=== PATIENT | female | born 1990 | race Caucasian/White ===

== ENCOUNTER → 2018-06-29 08:20 | Outpatient (CLI) | payer OTHER, SELFPAY ==
--- NOTE | 2018-06-29 08:25 | US_ITS ---
STUDY: ULTRASOUND OF THE FEMALE PELVIS - COMPLETE REASON FOR EXAM: Female, 28 years old. Pelvic pain. LMP: June 17, 2018. TECHNIQUE: Transabdominal TECHNICAL QUALITY: Adequate. COMPARISON: None. FINDINGS: The uterus is anteverted and is in a midline position. The uterus measures 7.6 cm x 3.2 cm x 2.4 cm. Normal uterine cervix. The endometrium measures 2.2 mm in thickness, and is hyperechoic. There is no demonstrated endometrial mass. There is no demonstrated myometrial mass. I.U.D. - The patient does not have an I.U.D. The right ovary is visualized. The right ovary measures 3.2 cm x 3 cm x 1.8 cm. There is no right ovarian cyst or ovarian mass. There is no visualized right adnexal mass or complex lesion. There is normal arterial and normal venous vascularity. The left ovary is visualized. The left ovary measures 2.0 cm x 1.8 cm x 1.8 cm. There is no left ovarian cyst or ovarian mass. There is no visualized left adnexal mass or complex lesion. There is normal arterial and normal venous vascularity. There is no fluid in the cul-de-sac. The pre void volume of the bladder was 577 ml. Polycystic ovary disease: No. US/Pelvic (Non ) IMPRESSION: Normal female pelvis. Electronically Signed: Vikram Toussaint MD at 14:04 EST Tel [phone], Service support ,
--- NOTE | 2018-06-29 08:26 | US_ITS ---
STUDY: ULTRASOUND OF THE FEMALE PELVIS - COMPLETE REASON FOR EXAM: Female, 28 years old. Pelvic pain. LMP: June 17, 2018. TECHNIQUE: Transabdominal TECHNICAL QUALITY: Adequate. COMPARISON: None. FINDINGS: The uterus is anteverted and is in a midline position. The uterus measures 7.6 cm x 3.2 cm x 2.4 cm. Normal uterine cervix. The endometrium measures 2.2 mm in thickness, and is hyperechoic. There is no demonstrated endometrial mass. There is no demonstrated myometrial mass. I.U.D. - The patient does not have an I.U.D. The right ovary is visualized. The right ovary measures 3.2 cm x 3 cm x 1.8 cm. There is no right ovarian cyst or ovarian mass. There is no visualized right adnexal mass or complex lesion. There is normal arterial and normal venous vascularity. The left ovary is visualized. The left ovary measures 2.0 cm x 1.8 cm x 1.8 cm. There is no left ovarian cyst or ovarian mass. There is no visualized left adnexal mass or complex lesion. There is normal arterial and normal venous vascularity. There is no fluid in the cul-de-sac. The pre void volume of the bladder was 577 ml. Polycystic ovary disease: No. US/Duplex Arterial Flow Limited IMPRESSION: Normal female pelvis. Electronically Signed: Vikram Toussaint MD at 14:04 EST Tel [phone], Service support ,
--- OUTSIDE RECORDS SUMMARY | 2018-08-15 03:32 | XMS RPT_ITS | Continuity of Care Document ---
:1990 Author Organization [facility] Address [address] [facility] [address] [place] [address] Phone Care Team Providers Name Role Phone Lamar Luo MD Unavailable Kaylynn Galdamez Unavailable Unavailable BULL Reyes Unavailable Unavailable Unavailable Unavailable Problems Name Dates Details Abnormal TSH (R79.89, 790.6) Status: Active Acne (L70.9, 706.1) Status: Active Acute pharyngitis (J02.9, 462) Comments: Around Aug 15 went to [facility] was told she had strep 2 rounds of antibiotics amoxicillin and z pack No improvement Status: Active Acute sinusitis, unspecified (J01.90, 461.9) Status: Active Allergic rhinitis (J30.9, 477.9) Comments: stable Status: Active Asthma (J45.909, 493.90) Comments: no signs and symptoms now Status: Active Attention-deficit hyperactivity disorder, unspecified type (F90.9, 314.01) Status: Active Bacterial vaginosis (N76.0, 616.10) Status: Active control (Z30.9, V25.9) Status: Active BMI 28.0-28.9,adult (Z68.28, V85.24) Status: Active Bronchitis (J40, 490) Status: Active Deliveries (Parity) Comments: 0 Status: Active Depressive disorder (F32.9, 311) Comments: doing well not need other meds Status: Active Dysmenorrhea (N94.6, 625.3) Comments: 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 Encounter for general adult medical examination with abnormal findings (Z00.01, V70.0) Status: Active Encounter for screening for cervical cancer (Renamed from Encounter for screening for malignant neoplasm of cervix) (Z12.4, V76.2) Status: Active Encounter for screening for respiratory tuberculosis (Z11.1, V74.1) Status: Active Eustachian tube dysfunction (H69.80, 381.81) Status: Active Fatigue (R53.83, 780.79) Status: Active Fever, unspecified (R50.9, 780.60) Status: Active Infectious mononucleosis (B27.90, 075) Comments: was told pos [place] at [facility] on 09-21-10, from blood test, went to [place] for spring, became acutely ill worsening Status: Active Lymphadenopathy (R59.1, 785.6) Comments: worse rt Status: Active Non-smoker (Z78.9, V49.89) Status: Active Obesity (BMI 30.0-34.9) (E66.9, 278.00) Comments: she needs to go back to meal prep, will eat less carbs for dinner when off work late 8 pm. try walking or exercise hour after dinner.swil get back to exercise Status: Active Other specified viral infection, in conditions classified elsewhere and of unspecified site (B97.89, 079.89) Status: Active Pelvic pain in female (R10.2, 625.9) Status: Active Pregnancies () Comments: 0 Status: Active Vaginal discharge (N89.8, 623.5) Status: Active WWV V73.21 Comments: 2008 good pap [facility] [place] Status: Active Medications Name Dates Details Flagyl 500 MG Oral Tablet 1 (one) Tablet bid for 7 days Quantity: 14 {Tablet} Refills: 0 Ordered:01-Jul-2018 BULL Reyes Start : 01-Jul-2018 Active Kariva 0.15-0.02/0.01 MG (06/12) Oral Tablet 1 (one) Tablet Tablet uad for 0 days Quantity: 1 {Package} Refills: 11 Ordered:07-Feb-2018 Puja MINAYA, Lamar Bradford MD, Lamar Carr Start : 07-Feb-2018 Active Strattera 100 MG Oral Capsule 1 Capsule QD for 0 days Quantity: 30 {Capsule} Refills: 1 Ordered:22-Mar-2018 Puja MINAYA, Lamar Bradford MD, Lamar Carr Start : 22-Mar-2018 Active ADDERALL XR, 20MG (Oral Capsule Extended Release 24 Hour) 1 (one) Capsule ER 24HR qd for 0 days Quantity: 30 {Capsule_ER_24HR} Refills: 0 Ordered:26-Apr-2009 BULL Reyes Start : 26-Apr-2009 End : 28-May-2009 Inactive ADVIL, 200MG (Oral Tablet) Unsure Unsure for 0 days Refills: 0 Ordered:01-Mar-2008 BULL Reyes End : 01-Mar-2008 Inactive EILEEN-D 12 HOUR, 60-120MG (Oral Tablet Extended Release 12 Hour) 1 Tablet ER 12HR q12hr for 5 days Quantity: 14 {Tablet_ER_12HR} Refills: 0 Ordered:23-Jul-2010 Garima BAUM Veena Start : 23-Jul-2010 End : 28-Jul-2010 Inactive LEVAQUIN, 500MG (Oral Tablet) 1 Tablet daily for 14 days Quantity: 14 {Tablet} Refills: 0 Ordered:29-Sep-2010 Magui Appiah LPN Start : 29-Sep-2010 End : 13-Oct-2010 Inactive NASACORT AQ, 55MCG/ACT (Nasal Aerosol Solution) 2 (two) Puff(s) once daily for 0 days Quantity: 1 {Aerosol_Soln} Refills: 0 Ordered:24-Sep-2010 Opal Phillip LPN Start : 23-Jul-2010 End : 24-Sep-2010 Inactive SANDRA 28, 3-0.03MG (Oral Tablet) 1 (one) Tablet QD for 0 days Quantity: 3 {Tablet} Refills: 3 Ordered:12-Dec-2008 BULL Reyes Start : 08-Apr-2007 End : 12-Dec-2008 Inactive ZITHROMAX Z-DALY, 250MG (Oral Tablet) tad Tablet qd for 0 days Quantity: 1 {package(s)} Refills: 0 Ordered:14-Jun-2013 Magui Appiah LPN Start : 09-Jun-2013 End : 14-Jun-2013 Inactive AMPICILLIN, 500MG (Oral Capsule) 1 BID for 0 days Refills: 0 Ordered:08-Mar-2007 Reena Ba End : 08-Mar-2007 Discontinued Loestrin 1.5/30 (21) 1.5-30 MG-MCG Oral Tablet 1 (one) Tablet qd for 30 days Quantity: 30 {Tablet} Refills: 0 Ordered:14-Jul-2017 Lamar Luo MD, MD, Dana M Start : 14-Jul-2017 End : 14-Jul-2017 Discontinued MULTIVITAMIN (Oral Liquid) Occasionally for 0 days Refills: 0 Ordered:08-Mar-2007 Mejia Reena End : 08-Mar-2007 Discontinued Phd-Hi-Edbisndp 0.18/0.215/0.25 MG-25 MCG Oral Tablet 1 (one) Tablet qd for 0 days Quantity: 1 {Package} Refills: 3 Ordered:17-Jan-2018 Lamar Luo MD, MD, Dana M Start : 17-Jan-2018 End : 17-Jan-2018 Discontinued WELLBUTRIN XL, 150MG (Oral Tablet Extended Release 24 Hour) 1 (one) Tablet ER 24HR QD for 0 days Quantity: 30 {Tablet_ER_24HR} Refills: 0 Ordered:01-Jul-2009 Lamar Luo MD, MD, Dana M Start : 01-Jul-2009 End : 01-Jul-2009 Discontinued Allergies and Adverse Reactions Name Dates Details Sulfa Drugs (Allergy) Status: Active Past Medical History Name Dates Details Encounter for screening for lipid disorder (Z13.220, V77.91) Status: Resolved as of 17-Jan-2018 SPLEEN, NOS Status: Resolved as of 17-Jan-2018 Well female exam with routine gynecological exam (Z01.419, V72.31) Comments: talk about assure get gardisal last shoot. told about stds and use condoms Status: Inactive as of 27-Dec-2008 Procedures Date Value Details 29-Jun-2018 Duplex Arterial Flow Limited Result: Comments: See Note; NOTES: [facility] [address] [place] [address] Duplex Arterial Flow Limited MR#: [id number] Acct: [id number] Name: TEZ MATA Rep # : [id number] : 1990 F 28 From: Vikram Toussaint MD PCP: Lamar Luo MD Status: REG CLI Study: Duplex Arterial Flow Limited Date of Exam: 06/29/18 Exam# [id number] Ordering Dr: Lamar Luo MD STUDY: ULTRASOUND OF THE FEMALE PELVIS - COMPLETE REASON FOR EXAM: Female, 28 years old. Pelvic pain. LMP: June 17, 2018. TECHNIQUE: Transabdominal TECHNICAL QUALITY: Adequate. COMPARISON: No ne. FINDINGS: The uterus is anteverted and is in a midline position. The uterus measures 7.6 cm x 3.2 cm x 2.4 cm. Normal uterine cervix. The endometrium measures 2. 2 mm in thickness, and is hyperechoic. There is no demonstrated endometrial mass. There is no demonstrated myometrial mass. I.U.D. - The patient does not have an I.U.D. The right ovary is visualized. T he right ovary measures 3.2 cm x 3 cm x 1.8 cm. There is no right ovarian cyst or ovarian mass. There is no visualized right adnexal mass or complex lesion. There is normal arterial and normal venous va scularity. The left ovary is visualized. The left ovary measures 2.0 cm x 1.8 cm x 1.8 cm. There is no left ovarian cyst or ovarian mass. There is no visualized left adnexal mass or complex lesion. The re is normal arterial and normal venous vascularity. There is no fluid in the cul-de-sac. The pre void volume of the bladder was 577 ml. Polycystic ovary disease: No. ____ US/Duplex Arterial Flow Limited IMPRESSION: Normal female pelvis. Electronically Signed: Vikram Toussaint MD at 14:04 EST Tel [phone], Service support [phone], CC: Lamar Luo MD Green Marketer: Signed 29-Jun-2018 Pelvic (Non ) Result: Comments: See Note; NOTES: [facility] [address] [place] [address] Pelvic (Non ) MR#: [id number] Acct: [id number] Name: TEZ MATA Rep #: [id number] : 1990 F 28 From: Vikram Toussaint MD PCP: Lamar Luo MD Status: REG CLI Study: Pelvic (Non ) Date of Exam: 06/29/18 Exam# [id number] Ordering Dr: Lamar Luo MD STUDY: ULTR ASOUND OF THE FEMALE PELVIS - COMPLETE REASON FOR EXAM: Female, 28 years old. Pelvic pain. LMP: June 17, 2018. TECHNIQUE: Transabdominal TECHNICAL QUALITY: Adequate. COMPARISON: None. FINDINGS: The uterus is anteverted and is in a midline position. The uterus measures 7.6 cm x 3.2 cm x 2.4 cm. Normal uterine cervix. The endometrium measures 2.2 mm in thickn ess, and is hyperechoic. There is no demonstrated endometrial mass. There is no demonstrated myometrial mass. I.U.D. - The patient does not have an I.U.D. The right ovary is visualized. The right ovary measures 3.2 cm x 3 cm x 1.8 cm. There is no right ovarian cyst or ovarian mass. There is no visualized right adnexal mass or complex lesion. There is normal arterial and normal venous vascularity. Th e left ovary is visualized. The left ovary measures 2.0 cm x 1.8 cm x 1.8 cm. There is no left ovarian cyst or ovarian mass. There is no visualized left adnexal mass or complex lesion. There is normal a rterial and normal venous vascularity. There is no fluid in the cul-de-sac. The pre void volume of the bladder was 577 ml. Polycystic ovary disease: No. ORDER # : [id number] US/Pelvic (Non ) IMPRESSION: Normal female pelvis. Electronically Signed: Vikram Toussaint MD at 14:04 EST Tel [phone], Service support , Fax CC: Lamar Luo MD Green Marketer: Signed Immunization Name Dates Details HPV, quadrivalent on: 14-Dec-2006 HPV, quadrivalent on: 08-Mar-2007 Comments: Injecton of 0.5 cc given in right deltoid.lot#[id number] exp.10/29/2009-aw Family History Unknown Family Member Name Dates Details Maternal Grandfather Comments: Ulcer disease, high cholesterol, Heart/lung disease Status: Active Maternal Grandmother Comments: Diabetes, thyroid disease Status: Active Mother Comments: Heart/lung disease Status: Active Paternal Grandfather Comments: Diabetes Status: Active Social History Name Dates Details Caffeine Use Comments: 1 QD Status: Active Exercise History Comments: Light Status: Active Living Situation Comments: single, 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 Status: Active Smoking Status Name Dates Details Never smoker Vital Signs Date Test Result Details :01 Temperature 98 f Comments: Method: Temporal Pulse 80 /min Comments: Pattern: Regular Respiration Rate 16 /min Comments: Pattern: Unlabored BP Systolic 106 mm[Hg] Comments: Patient Position: Sitting; Cuff Location: Left Arm; Cuff Size: Standard BP Diastolic 68 mm[Hg] Comments: Patient Position: Sitting; Cuff Location: Left Arm; Cuff Size: Standard Weight 176 lb Height 66 in Body Mass Index Calculated 28.41 kg/m2 Body Surface Area Calculated 1.89 m2 :59 Temperature 98.2 f Comments: Method: Temporal Pulse 92 /min Comments: Pattern: Regular Respiration Rate 20 /min Comments: Pattern: Unlabored O2 SAT 98 % Comments: Room air BP Systolic 118 mm[Hg] Comments: Patient Position: Sitting; Cuff Location: Left Arm; Cuff Size: Standard BP Diastolic 76 mm[Hg] Comments: Patient Position: Sitting; Cuff Location: Left Arm; Cuff Size: Standard Weight 176 lb Height 66 in Body Mass Index Calculated 28.41 kg/m2 Body Surface Area Calculated 1.89 m2 21-Ryx-[id number]:08 Temperature 97.2 f Comments: Method: Tympanic Pulse 90 /min Comments: Pattern: Regular Respiration Rate 18 /min Comments: Pattern: Unlabored O2 SAT 99 % Comments: Room air BP Systolic 138 mm[Hg] Comments: Patient Position: Sitting; Cuff Location: Left Arm; Cuff Size: Standard BP Diastolic 78 mm[Hg] Comments: Patient Position: Sitting; Cuff Location: Left Arm; Cuff Size: Standard Weight 186.25 lb Height 66 in Body Mass Index Calculated 30.06 kg/m2 Body Surface Area Calculated 1.94 m2 77-Fej-218251:18 Pulse 87 /min Comments: Pattern: Regular Respiration Rate 20 /min Comments: Pattern: Unlabored O2 SAT 98 % Comments: Room air BP Systolic 122 mm[Hg] Comments: Patient Position: Sitting; Cuff Location: Left Arm; Cuff Size: Large BP Diastolic 82 mm[Hg] Comments: Patient Position: Sitting; Cuff Location: Left Arm; Cuff Size: Large Weight 153.25 lb Height 66 in Body Mass Index Calculated 24.73 kg/m2 Body Surface Area Calculated 1.79 m2 :59 Temperature 98.6 f Comments: Method: Oral Pulse 80 /min Comments: Pattern: Regular Respiration Rate 18 /min Comments: Pattern: Unlabored O2 SAT 99 % Comments: Room air BP Systolic 118 mm[Hg] Comments: Patient Position: Sitting; Cuff Location: Left Arm; Cuff Size: Standard BP Diastolic 78 mm[Hg] Comments: Patient Position: Sitting; Cuff Location: Left Arm; Cuff Size: Standard Weight 156 lb Height 66 in Body Mass Index Calculated 25.18 kg/m2 Body Surface Area Calculated 1.8 m2 74-Veb-168419:02 Temperature 98 f Comments: Method: Oral Pulse 76 /min Comments: Pattern: Regular Respiration Rate 18 /min Comments: Pattern: Unlabored BP Systolic 104 mm[Hg] Comments: Patient Position: Sitting; Cuff Location: Left Arm; Cuff Size: Standard BP Diastolic 70 mm[Hg] Comments: Patient Position: Sitting; Cuff Location: Left Arm; Cuff Size: Standard Weight 156 lb Height 66 in Body Mass Index Calculated 25.18 kg/m2 Body Surface Area Calculated 1.8 m2 :42 Temperature 97.9 f Comments: Method: Oral Pulse 74 /min Comments: Pattern: Regular Respiration Rate 18 /min Comments: Pattern: Unlabored BP Systolic 100 mm[Hg] Comments: Patient Position: Sitting; Cuff Location: Left Arm; Cuff Size: Standard BP Diastolic 70 mm[Hg] Comments: Patient Position: Sitting; Cuff Location: Left Arm; Cuff Size: Standard Weight 158 lb Height 66 in Body Mass Index Calculated 25.5 kg/m2 Body Surface Area Calculated 1.81 m2 :44 Temperature 100.4 f Comments: Method: Oral Pulse 64 /min Comments: Pattern: Regular Respiration Rate 20 /min Comments: Pattern: Unlabored BP Systolic 108 mm[Hg] Comments: Patient Position: Sitting; Cuff Location: Left Arm; Cuff Size: Large BP Diastolic 68 mm[Hg] Comments: Patient Position: Sitting; Cuff Location: Left Arm; Cuff Size: Large Weight 148 lb Height 66 in Body Mass Index Calculated 23.89 kg/m2 Body Surface Area Calculated 1.76 m2 :07 Temperature 97.6 f Comments: Method: Oral Pulse 86 /min Comments: Pattern: Regular Respiration Rate 16 /min Comments: Pattern: Unlabored BP Systolic 120 mm[Hg] Comments: Patient Position: Sitting; Cuff Location: Left Arm; Cuff Size: Standard BP Diastolic 72 mm[Hg] Comments: Patient Position: Sitting; Cuff Location: Left Arm; Cuff Size: Standard Weight 148 lb Height 66 in Body Mass Index Calculated 23.89 kg/m2 Body Surface Area Calculated 1.76 m2 :29 Temperature 98.3 f Pulse 84 /min Comments: Pattern: Regular Respiration Rate 16 /min Comments: Pattern: Unlabored BP Systolic 118 mm[Hg] Comments: Patient Position: Sitting; Cuff Location: Left Arm; Cuff Size: Standard BP Diastolic 74 mm[Hg] Comments: Patient Position: Sitting; Cuff Location: Left Arm; Cuff Size: Standard :14 Pulse 70 /min Comments: Pattern: Regular Respiration Rate 16 /min Comments: Pattern: Unlabored BP Systolic 92 mm[Hg] Comments: Patient Position: Sitting; Cuff Location: Left Arm; Cuff Size: Standard BP Diastolic 68 mm[Hg] Comments: Patient Position: Sitting; Cuff Location: Left Arm; Cuff Size: Standard Weight 148 lb :34 Pulse 64 /min Comments: Pattern: Regular Respiration Rate 18 /min Comments: Pattern: Unlabored BP Systolic 110 mm[Hg] Comments: Patient Position: Sitting; Cuff Location: Right Arm; Cuff Size: Standard BP Diastolic 60 mm[Hg] Comments: Patient Position: Sitting; Cuff Location: Right Arm; Cuff Size: Standard Weight 150.0625 lb Height 66 in Body Mass Index Calculated 24.22 kg/m2 Body Surface Area Calculated 1.77 m2 Head Circumference 0.00 cm :56 Pulse 72 /min Comments: Pattern: Regular Respiration Rate 16 /min Comments: Pattern: Unlabored BP Systolic 110 mm[Hg] Comments: Patient Position: Sitting; Cuff Location: Left Arm; Cuff Size: Standard BP Diastolic 74 mm[Hg] Comments: Patient Position: Sitting; Cuff Location: Left Arm; Cuff Size: Standard Weight 150 lb Height 0 in Head Circumference 0.00 cm :58 Pulse 74 /min Comments: Pattern: Regular Respiration Rate 16 /min Comments: Pattern: Unlabored BP Systolic 100 mm[Hg] Comments: Patient Position: Sitting; Cuff Location: Left Arm; Cuff Size: Large BP Diastolic 70 mm[Hg] Comments: Patient Position: Sitting; Cuff Location: Left Arm; Cuff Size: Large Weight 178 lb Height 0 in Head Circumference 0.00 cm :58 Temperature 97.8 f Comments: Method: Oral Pulse 74 /min Comments: Pattern: Regular Respiration Rate 16 /min Comments: Pattern: Unlabored BP Systolic 110 mm[Hg] Comments: Patient Position: Sitting; Cuff Location: Left Arm; Cuff Size: Standard BP Diastolic 74 mm[Hg] Comments: Patient Position: Sitting; Cuff Location: Left Arm; Cuff Size: Standard Weight 169 lb Height 0 in Head Circumference 0.00 cm :03 Temperature 98.8 f Comments: Method: Oral Pulse 64 /min Comments: Pattern: Regular Respiration Rate 16 /min Comments: Pattern: Unlabored BP Systolic 108 mm[Hg] Comments: Patient Position: Sitting; Cuff Location: Left Arm; Cuff Size: Standard BP Diastolic 70 mm[Hg] Comments: Patient Position: Sitting; Cuff Location: Left Arm; Cuff Size: Standard Weight 0 lb Height 66 in Head Circumference 0.00 cm :40 Temperature 97 f Comments: Method: Oral Pulse 76 /min Comments: Pattern: Regular Respiration Rate 16 /min Comments: Pattern: Unlabored BP Systolic 100 mm[Hg] Comments: Patient Position: Sitting; Cuff Location: Left Arm; Cuff Size: Standard BP Diastolic 74 mm[Hg] Comments: Patient Position: Sitting; Cuff Location: Left Arm; Cuff Size: Standard Weight 0 lb Height 0 in Head Circumference 0.00 cm :57 Temperature 97.5 f Comments: Method: Oral Pulse 60 /min Comments: Pattern: Regular Respiration Rate 16 /min Comments: Pattern: Unlabored BP Systolic 100 mm[Hg] Comments: Patient Position: Sitting; Cuff Location: Left Arm; Cuff Size: Standard BP Diastolic 60 mm[Hg] Comments: Patient Position: Sitting; Cuff Location: Left Arm; Cuff Size: Standard Weight 0 lb Height 66 in Head Circumference 0.00 cm 41-[id number]:49 Temperature 98.8 f Comments: Method: Oral Pulse 68 /min Comments: Pattern: Regular Respiration Rate 16 /min Comments: Pattern: Unlabored BP Systolic 100 mm[Hg] Comments: Patient Position: Sitting; Cuff Location: Left Arm; Cuff Size: Standard BP Diastolic 64 mm[Hg] Comments: Patient Position: Sitting; Cuff Location: Left Arm; Cuff Size: Standard Weight 152 lb Height 66 in Body Mass Index Calculated 24.53 kg/m2 Body Surface Area Calculated 1.78 m2 Head Circumference 0.00 cm Results Date Description Value Details [id number]-Cej-462161:18 HPV, Reflex (63334) Comments: Source.............Cervix;EndocervixNo. of containers..01 ThinPrep VialPATIENT NOT FASTINGPERFORMED BY: [facility] [id number] Information: [id number] Note: PAPSMR (Normal) Comments: The Pap smear is a screening test designed to aid in the detection ofpremalignant and malignant conditions of the uterine cervix. It is not adiagnostic procedure and should not be used as the sole mean s of detectingcervical cancer. Both false-positive and false-negative reports do occur. .The HPV DNA reflex criteria were not met with this specimen resulttherefore, no HPV testing was performed. . See Note . (Normal) DIAGNOSIS: SPRCS (Normal) Comments: NEGATIVE FOR INTRAEPITHELIAL LESION AND MALIGNANCY.THIS SPECIMEN WAS RESCREENED PART OF OUR B[facility] HAND PROGRAM.Satisfactory for evaluation. Endocervical and/or squamous metaplasticc ells (endoce rvical component) are present.Z12.4Cman Ortiz, Nuclear Supervising Operator (ASC)Jazmin Boone, Supervisory Nuclear Supervising Operator (ASC) [id number]-Jzu-[id number]:10 NuSwab Vaginitis Plus (STD Comments: PATIENT NOT FASTINGPERFORMED BY: RAHEEL [facility] [id number] [facility] [id number] Information: SRC:VA W/O Herpes) (22946) Neisseria gonorrhoeae, Negative (Normal) HALINA Chlamydia trachomatis, Negative (Normal) HALINA Trich vag by HALINA Negative (Normal) Adilia glabrata, HALINA Negative (Normal) Comments: This test was developed and its performance characteristics determinedby [facility]. It has not been cleared or approved by the Food and DrugAdministration. The FDA has determined that such clearance orapproval is not necessary. Adilia albicans, HALINA Negative (Normal) Megasphaera 1 Low - 0 {Score} Comments: Calculate total score by adding the 3 individual bacterialvaginosis (BV) marker scores together. Total score isinterpreted as follows:Total score 0-1: Indicates the absence of BV.Total scor e 2: Indet (Normal) erminate for BV. Additional clinical data should be evaluated to establish a diagnosis.Total score 3-6: Indicates the presence of BV. .This test was developed and its performance characteristicsdetermined by [facility]. It has not been cleared or approvedby the Food and Drug Administration. The FDA has determinedthat such clearance or approval is not necessary. BVAB 2 Low - 0 {Score} (Normal) Atopobium vaginae High - 2 {Score} (Abnormal) 15-Drq-833910:36 LIPID PANEL (62868) Comments: PATIENT WAS FASTINGPERFORMED BY: CONRADO [facility] [id number] [facility] [id number] LDL/HDL Ratio 1.9 {ratio_units} (Normal) Range: 0.0-3.2 Comments: LDL/HDL Ratio Men Women 1/2 Avg.Risk 1.0 1.5 Av g.Risk 3.6 3.2 2X Avg.Risk 6.2 5.0 3X Avg.Risk 8.0 6.1 LDL Cholesterol Calc 132 mg/dL (Abnormal) Range: 0-99 VLDL Cholesterol Geo 18 mg/dL (Normal) Range: 5-40 HDL Cholesterol 70 mg/dL (Normal) Triglycerides 90 mg/dL (Normal) Range: 0-149 Cholesterol, Total 220 mg/dL (Abnormal) Range: 100-199 :51 Ferritin (14942) Comments: PATIENT WAS FASTINGPERFORMED BY: [facility] [id number] [facility] [place] [id number] Ferritin, Serum 106 ng/mL (Normal) Range: 15-150 :51 Anti-TPO Antibody (14108) Comments: PATIENT WAS FASTINGPERFORMED BY: [facility] [id number] [address] [facility] [place] [id number] Thyroid Peroxidase (TPO) Ab 17 {IU/mL} (Normal) Range: 0-34 :51 T4, FREE (THYROXINE) (81707) Comments: PATIENT WAS FASTINGPERFORMED BY: [facility] [id number] [facility] [place] [id number] T4,Free(Direct) 1.20 ng/dL (Normal) Range: 0.82-1.77 :51 T3, FREE (TRIDOTHYRONINE) (87393) Comments: PATIENT WAS FASTINGPERFORMED BY: [facility] Wombks[address] [facility] [place] [id number] Triiodothyronine,Free,Serum 2.9 pg/mL (Normal) Range: 2.0-4.4 :51 CALCIFIDIOL (07160) VIT D 25 Comments: PATIENT WAS FASTINGPERFORMED BY: [facility] [id number] [address] [facility] [place] [id number] Vitamin D, 25-Hydroxy 29.9 ng/mL (Abnormal) Range: 30.0-100.0 Comments: Vitamin D deficiency has been defined by the [place] ofMedicine and an Endocrine Society practice guideline as alevel of serum 25-OH vitamin D less than 20 ng/mL (1,2).The Endocrine Society went on to further define vitamin Dinsufficiency as a level between 21 and 29 ng/mL (2).1. IOM ([place] of Medicine). 2010. Dietary reference intakes for calcium and D. Link [place]: The National Academies Press.2. Ananth MF, Nirmal NC, Winter DELGADO, et al. Evaluation, treatment, and prevention of vitamin D deficiency: an Endocrine Society clinical practice guideline. JCEM. 2010; 96(7):1911-30. :51 Folate (35354) Comments: PATIENT WAS FASTINGPERFORMED BY: [facility] [id number]Dublin [place] [id number] Folate (Folic Acid), Serum 12.9 ng/mL (Normal) Comments: A serum folate concentration of less than 3.1 ng/mL isconsidered to represent clinical deficiency. :51 VITAMIN B-12 (CYANOCOBALAMIN) Comments: PATIENT WAS FASTINGPERFORMED BY: CB [facility] [id number] [address] RoadDublin [place] [id number] (11946) Vitamin B12 271 pg/mL (Normal) Range: 211-946 Comments: Effective June 21, 2017 the reference interval for Vitamin B12 will be changing to: 232-1245 pg/mL. :51 TSH (14315) Comments: PATIENT WAS FASTINGPERFORMED BY: CB [facility] [id number]Dublin [place] [id number] TSH 3.270 {uIU/mL} (Normal) Range: 0.450-4.500 :51 SED RATE ERYTHROCYTE ([id number]) Comments: PATIENT WAS FASTINGPERFORMED BY: CB [facility] [id number] RoadDublin [place] [id number] Sedimentation Rate-Westergren 2 mm/h (Normal) Range: 0-32 :51 METABOLIC PANEL, COMPREHENSIVE Comments: PATIENT WAS FASTINGPERFORMED BY: CB [facility] [id number]Dublin [place] [id number] ([id number]) ALT (SGPT) 34 [iU]/L (Abnormal) Range: 0-32 AST (SGOT) 21 [iU]/L (Normal) Range: 0-40 Alkaline Phosphatase, S 51 [iU]/L (Normal) Range: 39-117 Bilirubin, Total 0.2 mg/dL (Normal) Range: 0.0-1.2 A/G Ratio 1.4 (Normal) Range: 1.2-2.2 Globulin, Total 2.8 g/dL (Normal) Range: 1.5-4.5 Albumin, Serum 4.0 g/dL (Normal) Range: 3.5-5.5 Protein, Total, Serum 6.8 g/dL (Normal) Range: 6.0-8.5 Calcium, Serum 9.6 mg/dL (Normal) Range: 8.7-10.2 Carbon Dioxide, Total 23 mmol/L (Normal) Range: 18-29 Chloride, Serum 100 mmol/L (Normal) Range: 96-106 Potassium, Serum 4.7 mmol/L (Normal) Range: 3.5-5.2 Sodium, Serum 138 mmol/L (Normal) Range: 134-144 BUN/Creatinine Ratio 16 (Normal) Range: 9-23 eGFR If Africn Am 112 mL/min/1.73 (Normal) eGFR If NonAfricn Am 97 mL/min/1.73 (Normal) Creatinine, Serum 0.82 mg/dL (Normal) Range: 0.57-1.00 BUN 13 mg/dL (Normal) Range: 6-20 Glucose, Serum 83 mg/dL (Normal) Range: 65-99 02-Xjg-97382:51 CBC (AUTO) ([id number]) Comments: PATIENT WAS FASTINGPERFORMED BY: [facility] CenterYuvmco9369 [facility] [id number] Platelets 309 {x10E3/uL} (Normal) Range: 150-379 RDW 12.7 % (Normal) Range: 12.3-15.4 MCHC 33.7 g/dL (Normal) Range: 31.5-35.7 MCH 28.6 pg (Normal) Range: 26.6-33.0 MCV 85 fL (Normal) Range: 79-97 Hematocrit 38.6 % (Normal) Range: 34.0-46.6 Hemoglobin 13.0 g/dL (Normal) Range: 11.1-15.9 Comments: Effective June 21, 2017 the reference interval for Hemoglobin MALES only will be changing to: Males 13-15 years: 12.6 - 17.7 Males >15 years: 13.0 - 17.7 RBC 4.54 {x10E6/uL} (Normal) Range: 3.77-5.28 WBC 5.7 {x10E3/uL} (Normal) Range: 3.4-10.8 0-Rko-212566:19 SKIN TEST INTRADERMAL TB ([id number]) SKIN TEST INTRADERMAL TB negative (Normal) :41 CBCD ABSOLUTE NEUT 1.7 3/uL (Abnormal) Range: 2.0-7.7 BASO% 1.6 % (Abnormal) Range: 0-1 EO% 2.2 % (Normal) Range: 0-5 MONO% 6.6 % (Normal) Range: 0-10 LY% 53.0 % (Abnormal) Range: 19-41 MPV 6.5 fL (Normal) Range: 6.5-12.0 NEUT% 36.6 % (Abnormal) Range: 47-70 PLT 301 K/mm3 (Normal) Range: 150-450 RDW 13.3 % (Normal) Range: 11.6-14.6 MCH 29.5 pg (Normal) Range: 27.0-32.0 MCHC 34.6 g/dL (Normal) Range: 32-36 MCV 85.2 fL (Normal) Range: 81-99 HCT 35.8 % (Abnormal) Range: 37-47 HGB 12.4 g/dL (Normal) Range: 12.0-16.0 RBC 4.20 {M/mm3} (Normal) Range: 4.2-5.4 WBC 4.7 K/mm3 (Normal) Range: 4.4-11.0 55-Hlj-022902:20 Rapid Strep Test, Office ([id number]) Rapid Strep Test, Office Negative (Normal) 08-Hxy-767251:42 CBC WITH MANUAL DIFF Comments: PATIENT NOT FASTINGPERFORMED BY: [facility]CoSt[facility] CenterGmxmbh5453 [facility] [id number] Information: [id number] ([id number]) Hematology Comments: Note: (Normal) Comments: Manual differential was performed. Baso (Absolute) 0.0 {x10E3/uL} (Normal) Range: 0.0-0.2 Eos (Absolute) 0.1 {x10E3/uL} (Normal) Range: 0.0-0.4 Lymphs (Absolute) 4.4 {x10E3/uL} (Normal) Range: 0.7-4.5 Monocytes(Absolute) 0.7 {x10E3/uL} (Normal) Range: 0.1-1.0 Neutrophils (Absolute) 8.1 {x10E3/uL} (Abnormal) Range: 1.8-7.8 Basos 0 % (Normal) Range: 0-3 Eos 1 % (Normal) Range: 0-7 Lymphs 33 % (Normal) Range: 14-46 Monocytes 5 % (Normal) Range: 4-13 Neutrophils 61 % (Normal) Range: 40-74 Comments: Occasional myelocyte seen on scanning. MCH 28.4 pg (Normal) Range: 27.0-34.0 MCHC 33.9 g/dL (Normal) Range: 32.0-36.0 Platelets 208 {x10E3/uL} (Normal) Range: 140-415 RDW 12.9 % (Normal) Range: 11.7-15.0 Hematocrit 35.1 % (Normal) Range: 34.0-44.0 Hemoglobin 11.9 g/dL (Normal) Range: 11.5-15.0 MCV 84 fL (Normal) Range: 80-98 RBC 4.19 {x10E6/uL} (Normal) Range: 3.80-5.10 Comments: Polychromasia present WBC 13.2 {x10E3/uL} (Abnormal) Range: 4.0-10.5 09-Pnh-715134:20 Influenza B Ag (68322) Influenza A Ag negative (Normal) 39-Wai-787536:20 Influenza A Ag (86156) Influenza A Ag negative (Normal) 7-Ihj-521214:00 MIGUEL CULTURE-OTHER (63872) Comments: PATIENT NOT FASTINGPERFORMED BY: [facility] [id number] [facility] [id number] Information: SRC:THRT [id number] Result 1 RRF (Normal) Comments: Routine respiratory deedee Upper Respiratory Culture Final report (Normal) 18-Jit-65944:15 Pap Lb, rfx HPV Comments: Source.............Cervical;EndocervicalLMP / Prev Treat...EEY=[id number]. of containers..01 CYTYC Thin Prep VialPERFORMED BY: WB [facility] [place] [address] [place] [address] [place] 25 [id number] all pth . . (Normal) Note: PAPSMR (Normal) Comments: The Pap smear is a screening test designed to aid in the detection ofpremalignant and malignant conditions of the uterine cervix. It is not adiagnostic procedure and should not be used as the sole mean s of detectingcervical cancer. Both false-positive and false-negative reports do occur. .The HPV DNA reflex criteria were not met with this specimen resulttherefore, no HPV testing was performed. . DIAGNOSIS: SPRCS (Normal) Comments: NEGATIVE FOR INTRAEPITHELIAL LESION AND MALIGNANCY.Satisfactory for evaluation. Endocervical and/or squamous metaplasticcells (endocervical component) are present.V72.31 ; Routine gynecolog ical exammaryana Rai Nuclear Supervising Operator (ASCP) Plan of Care Name Dates Details Instructions Pelvic pain in female : Eprescribed prescriptions (G8553) Indication: Pelvic pain in female Encounter for general adult medical examination with abnormal findings : Eprescribed prescriptions (G8553) Indication: Encounter for general adult medical examination with abnormal findings Attention-deficit hyperactivity disorder, unspecified type : Follow up in 3 months: with Esteban Indication: Attention-deficit hyperactivity disorder, unspecified type Bronchitis : *URI Treatment Indication: Bronchitis Bronchitis : *Antibiotic Usage Education - Female Indication: Bronchitis Other specified viral infection, in conditions classified elsewhere and of unspecified site : *URI Symptoms Indication: Other specified viral infection, in conditions classified elsewhere and of unspecified site Other specified viral infection, in conditions classified elsewhere and of unspecified site : *URI Treatment Indication: Other specified viral infection, in conditions classified elsewhere and of unspecified site Attention-deficit hyperactivity disorder, unspecified type : FOLLOW UP IN 6 MONTHS Indication: Attention-deficit hyperactivity disorder, unspecified type Acute sinusitis, unspecified : *URI Treatment Indication: Acute sinusitis, unspecified Acute sinusitis, unspecified : Antibiotic Usage Education - Female Indication: Acute sinusitis, unspecified Acute sinusitis, unspecified : URI Symptoms Indication: Acute sinusitis, unspecified Well female exam with routine gynecological exam : Well Female Maintenance (KF) Indication: Well female exam with routine gynecological exam Well female exam with routine gynecological exam : Pap/Pelvic/Bimanual/Rectal/Breast Exam was done. Indication: Well female exam with routine gynecological exam Bronchitis : *URI Treatment Indication: Bronchitis Bronchitis : Antibiotic Usage Education - Female Indication: Bronchitis Bronchitis : URI Symptoms Indication: Bronchitis Planned Observations Pap - GC Chlamydia ([id number])Indication: Encounter for screening for cervical cancer (Renamed from Encounter for screening for malignant neoplasm of cervix) On: 24-Jun-20189:28 Request Thin Prep Pap ([id number])Indication: Encounter for screening for cervical cancer (Renamed from Encounter for screening for malignant neoplasm of cervix) On: 24-Jun-20189:27 Request CBC, PLATELETS & AUT DIFF (69804)Indication: Lymphadenopathy On: 48-Jik-196281:02 Request TSH ([id number])Indication: Abnormal TSH On: 8-Lkj-804445:36 Request Rapid Strep Test, Office ([id number])Indication: Acute pharyngitis On: 5-Hxw-783020:27 Request Thin prep Pap ([id number])Indication: Well female exam with routine gynecological exam On: 32-Gai-82473:18 Request Planned Procedures Ultrasound - PelvisBy: Puja MINAYA, On: 24-Jun-2018 Intent Lamar Jose MD Eprescribed prescriptions (G8553)By: On: 09-Jun-2013 Intent Sydnee Camara DO THER/PROPH/DIAG INJ, SC/IM ([id number])By: On: 08-Mar-2007 Reena Alfaro PAPILLOMA VACC 3 DOSE IM ([id number])By: On: 08-Mar-2007 Reena Alfaro Comments: Injecton of 0.5 cc given in right deltoid.lot#[id number] exp.10/29/2009-aw THER/PROPH/DIAG INJ, SC/IM ([id number])By: On: 14-Dec-2006 Intent Lamar Luo MD, MD, Dana M H PAPILLOMA VACC 3 DOSE IM ([id number])By: On: 14-Dec-2006 Intent Puja MINAYA, Lamar Jose MD Instructions Name Dates Details Pelvic pain in female : How to access health information online Indication: Pelvic pain in female Pelvic pain in female : How to access health information online - Detail Indication: Pelvic pain in female Pelvic pain in female : Patient Instructions Indication: Pelvic pain in female Encounter for general adult medical examination with abnormal findings : How to access health information online Indication: Encounter for general adult medical examination with abnormal findings Encounter for general adult medical examination with abnormal findings : How to access health information online - Detail Indication: Encounter for general adult medical examination with abnormal findings Encounter for general adult medical examination with abnormal findings : Patient Instructions Indication: Encounter for general adult medical examination with abnormal findings Bronchitis : Patient Instructions Indication: Bronchitis Encounters Phone Encounter On: 01-Jul-2018 9:25 Encounter Diagnosis: Bacterial vaginosis End: 01-Jul-2018 9:27 [facility] Lab Order On: 24-Jun-2018 10:17 Encounter Diagnosis: Encounter for screening for cervical cancer (Renamed from Encounter for screening for malignant neoplasm of cervix) End: 24-Jun-2018 10:18 [facility] Office Visit On: 24-Jun-2018 9:00 Encounter Reason: Vaginal Itching - Symptoms include vaginal itching and vaginal discharge. Onset was day(s) ago. Current treatment includes oral antifungals. Note for Vaginal itching: on and off month started treating End: 24-Jun-2018 9:53 2 weeks ago. try otc 7 day monistat. some improvement then come back. some vaginal discharge white thicker.Encounter Diagnosis: BMI 28.0-28.9,adult, Non-smoker, Vaginal discharge, Encounter for screening for cervical cancer (Renamed from Encounter for screening for malignant neoplasm of cervix), Pelvic pain in female [facility] Office Visit On: 17-Jan-2018 8:58 Encounter Diagnosis: Obesity (BMI 30.0-34.9), control, Dysmenorrhea End: 17-Jan-2018 9:22 [facility] Phone Encounter On: 07-Dec-2017 14:43 Encounter Diagnosis: control End: 07-Dec-2017 14:58 [facility] Office Visit On: 14-Jul-2017 9:53 Encounter Reason: Follow up for chronic medical issues - The patient feels well with no complaints, has decreased energy level (mid day very sleepy) and is sleeping poorly (just during the break at home, but other kelsi th End: 14-Jul-2017 11:42 at 8 hours qd). Patient has been compliant with instructions. Current medication use: compliant with dosing regimen. Patient sleeps 8 hours per night. Nutrition: balanced diet.Encounter Diagnosis: Allergic rhinitis, Depressive disorder, SPLEEN, NOS, Acne (706.1), Fatigue, Abnormal TSH, Asthma, Attention-deficit hyperactivity disorder, unspecified type, Lymphadenopathy (785.6), Encounter for general adult medical examination with abnormal findings, Encounter for screening for lipid disorder, Obesity (BMI 30.0-34.9) [facility] Phone Encounter On: 08-Jun-2017 12:19 Encounter Diagnosis: Abnormal TSH, Fatigue End: 08-Jun-2017 12:23 [facility] Office Visit On: 14-Jun-2013 11:18 Encounter Reason: Follow up for chronic medical issues - The patient feels well with minor complaints, has good energy level and is sleeping well. Patient has been compliant with instructions. Current medication use: no End: 14-Jun-2013 11:39 side effects and compliant with dosing regimen. Patient sleeps 8 hours per night. Nutrition: balanced diet. The medical issues the patient is following up for include All identified problems below.Encounter Diagnosis: ADD - Adult/Child (314.00), Lymphadenopathy (785.6) [facility] Office Visit On: 09-Jun-2013 10:57 Encounter Reason: Upper Respiratory Infection (URI) - The last clinic visit was week(s) ago. No changes in management were made at the last visit. Symptoms include nasal congestion, runny nose and productive cough. Onset End: 09-Jun-2013 11:34 was sudden. The symptoms occur constantly. The patient describes this as moderate in severity.Encounter Diagnosis: BRONCHITIS, NOT SPECIFIED ACUTE OR CHRONIC (490.) [facility] Office Visit On: 15-Jul-2012 10:02 Encounter Diagnosis: ADD - Adult/Child (314.00), Depressive Disorder (311.), Allergic Rhinitis(477.9), Asthma (493.11), WWV V73.21 End: 15-Jul-2012 10:45 [facility] Office Visit On: 22-Dec-2011 15:19 Encounter Reason: Nurse procedure visit - Reason for visit: other (PPD).Encounter Diagnosis: SCREENING FOR TB (V74.1) End: 24-Dec-2011 14:55 [facility] Office Visit On: 27-Feb-2011 7:41 Encounter Reason: Follow up for chronic medical issues - The patient feels well with minor complaints, has good energy level and is sleeping well. Patient has been compliant with instructions. Current medication use: no End: 27-Feb-2011 8:06 side effects and compliant with dosing regimen. Patient sleeps 7 hours per night. Impact of disease: emotional impact-mild. Nutrition: balanced diet and supplemental vitamins. The medical issues the pat ient is following up for include asthma, depression and other (ADD, acne ).Encounter Diagnosis: ADD - Adult/Child (314.00), Depressive Disorder (311.) [facility] Phone Encounter On: 03-Oct-2010 11:01 Encounter Diagnosis: Lymphadenopathy (785.6) End: 03-Oct-2010 11:02 [facility] Office Visit On: 29-Sep-2010 9:41 Encounter Reason: Sore throat - The onset of the sore throat has been sudden and has been occurring in a persistent pattern for 2 months. The course has been worsening. The symptoms have been associated with difficulty i End: 29-Sep-2010 11:47 n swallowing and fever, while the symptoms have not been associated with cough. Note for Sore throat: she was dx with strp at end of jul and then she was told last weeks she had mono and was here last week and she was neg for strep and pedro sent us to er and they did nothing for her there and ct the spleen and blood work, [ADDITIONAL REASON] Fever - The onset of the fever has been sudden and has been occurring in a persi stent pattern for 10 days. The course has been constant. The patient has a temperature of up to 104 F. The symptoms have been associated with ear pain, fatigue, headache, loss of appetite, malaise and s ore throat, while the symptoms have not been associated with cough, diarrhea or runny nose. Encounter Diagnosis: MONONUCLEOSIS, INFECTIOUS (075.), Lymphadenopathy (785.6), PHARYNGITIS, ACUTE (462.), SYMPTOM, FEVER, UNSPECIFIED (780.60), Acute sinusitis, unspecified (461.9) [facility] Annotation/Addendum On: 26-Sep-2010 10:02 Encounter Diagnosis: Acute sinusitis, unspecified (461.9) End: 26-Sep-2010 10:04 [facility] Erroneous Entry On: 24-Sep-2010 12:34 Encounter Diagnosis: Abnormal TSH (794.5) End: 24-Sep-2010 13:55 [facility] Office Visit On: 24-Sep-2010 11:01 Encounter Reason: Sore throat - The sore throat has been occurring in a persistent pattern. The course has been worsening. The symptoms have been associated with difficulty in swallowing, fever, recent contact with a per End: 24-Sep-2010 12:13 son with sore throat and swelling of neck glands.Encounter Diagnosis: MONONUCLEOSIS, INFECTIOUS (075.), Lymphadenopathy (785.6), PHARYNGITIS, ACUTE (462.), SPLEEN, NOS [facility] Office Visit On: 23-Jul-2010 8:26 Encounter Reason: Cold Symptoms - Symptoms include nasal congestion, runny nose, sore throat, productive cough, facial pressure, facial pain and headache. Onset was sudden 4 day(s) ago. There is no known event that prece End: 23-Jul-2010 9:13 ded symptom onset. The symptoms occur constantly. The patient describes this as moderate in severity and worsening. Symptoms are not relieved by non- prescription cold medications. Associated symptoms in clude ear pain, nausea and chills, while associated symptoms do not include wheezing, shortness of breath, vomiting, diarrhea or fever. Current treatment includes non-prescription cold medication (tylenol cold and xycam).Encounter Diagnosis: Viral infection, unspecified (079.99), Eustachian tube dysfunction (381.81) [facility] Office Visit On: 25-Jul-2009 8:13 Encounter Reason: ADHD Medication Check, 3-19 years - The history is obtained from the patient. The last clinic visit was 1 month(s) ago. No changes in management were made at the last visit. The symptoms are described a End: 25-Jul-2009 8:35 s mild and improving. Current treatment includes non-stimulant medications. By report there is good compliance with treatment. Encounter Diagnosis: ADD - Adult/Child (314.00) [facility] Office Visit On: 01-Jul-2009 10:31 Encounter Reason: Follow up Meds - The patient feels well with no complaints ,has good energy level and is sleeping well. Patient has been compliant with instructions. Current medication use: no side effects. Patient sle End: 01-Jul-2009 11:13 eps 7 hours per night. Impact of disease: no overall impact. Nutrition: balanced diet. Encounter Diagnosis: ADD - Adult/Child (314.00) [facility] Office Visit On: 24-May-2009 13:54 Encounter Reason: Anxiety - The onset of the anxiety has been acute and has been occurring in an intermittent pattern for 1 months. The course has been recurrent. The anxiety is characterized as apprehension and nervousn End: 24-May-2009 14:26 ess. There are no specific phobias. Precipitating factors include specific forthcoming events and specific circumstances. The symptoms have been associated with agitation ,breathlessness ,chest pain and personality change. Previous evaluations: other (Adderall ). Encounter Diagnosis: ADD - Adult/Child (314.00), Depressive Disorder (311.), Acute sinusitis, unspecified (461.9) [facility] Office Visit On: 12-Dec-2008 8:57 Encounter Diagnosis: ADD - Adult/Child (314.00) End: 12-Dec-2008 9:29 [facility] Office Visit On: 01-Mar-2008 8:57 Encounter Reason: Well Women Exam - The patient feels well with no complaints ,has good energy level and is sleeping well. Pap smear: date of last pap: (2005). Contraceptive history: The current method of contraception i End: 01-Mar-2008 9:20 s oral contraceptives. Patient exercises a weekly. The patient's libido is normal. The patient reports that she performs monthly self breast exam. The patient has been using oral contraceptives. Menstruation: Last menstrual period date: (02-26-08 ). Encounter Diagnosis: Well Female (Younger Female) (V72.31) [facility] Office Visit On: 22-Jul-2007 15:02 Encounter Reason: Cough - The onset of the cough has been sudden (4 weeks). The cough is characterized as productive of mucopurulent sputum. The amount of sputum produced is less than a half a cup per day. The cough occu End: 22-Jul-2007 15:30 rs all the time. The symptoms are not aggravated by supine posture or meals. The symptoms have been associated with headache ,hoarseness ,runny nose and wheezing, while the symptoms have not been associ ated with fever or sore throat. the color of the sputum is greenish. Encounter Diagnosis: BRONCHITIS, NOT SPECIFIED ACUTE OR CHRONIC (490.) [facility] Office Visit On: 06-Jul-2007 8:40 Encounter Reason: Cough - The onset of the cough has been 2 weeks ago. The cough is characterized as productive of mucopurulent sputum. The amount of sputum produced is less than a half a cup per day. The cough occurs al End: 06-Jul-2007 9:29 l the time. The symptoms are not aggravated by supine posture or meals. The symptoms have been associated with headache ,hoarseness ,runny nose and wheezing, while the symptoms have not been associated with fever or sore throat. the color of the sputum is greenish. , [ADDITIONAL REASON] Nasal congestion - The onset of the nasal congestion has been gradual and has be en occurring in a persistent pattern for 2 weeks. The course has been constant. The nasal congestion is described as moderate. [facility] Nurse Visit On: 08-Mar-2007 10:50 Encounter Diagnosis: Well Female (Younger Female) (V72.31) End: 08-Mar-2007 15:14 [facility] Office Visit On: 14-Dec-2006 15:46 [facility] End: 14-Dec-2006 16:55 Office Visit On: 14-Dec-2006 14:49 Encounter Reason: Injections - The medication the patient is here to receive is HPV vaccine IM. The patient has an allergy to other (Sulfa). history: Patient is not currently . Encounter Diagnosis: End: 14-Dec-2006 15:36 Well Female (Younger Female) (V72.31) [facility] Historical Summary On: 11-Aug-2006 12:19 [facility] End: 11-Aug-2006 12:27 Phone Encounter On: 04-Jun-2006 15:26 Encounter Diagnosis: Unspecified Diagnosis End: 04-Jun-2006 15:34 [facility]; marc guarantor
--- OUTSIDE RECORDS SUMMARY | 2018-08-15 03:32 | XMS RPT_ITS ---
:1990 Author Organization OHIP Care Team Providers Name Role Phone Lamar Luo MD Attending Unavailable Lamar Luo MD Referring Unavailable Lamar Luo MD Consulting Unavailable Lamar Luo Attending Unavailable Lamar Luo Primary Care Unavailable Purpose Purpose PROBLEMS PROBLEMS No Problem Records FoundPROCEDURES PROCEDURES No Procedure Records FoundVITAL SIGNS VITAL SIGNS No Vital Signs Records FoundRESULTS RESULTS PELVIC (NON ) Observed: 06/29/2018 Status: F Source: [place] 8:26 AM [facility] REPOSITORY [facility] Imaging Services [address] [place] [address] Pelvic (Non ) MR#: [id number] Acct: [id number] Name: TEZ MATA Rep #: [id number] : 1990 F 28 From: Vikram Toussaint MD PCP: Lamar Luo MD Status: REG CLI Study: Pelvic (Non ) Date of Exam: 06/29/18 Exam# [id number] Ordering Dr: Lamar Luo MD STUDY: ULTRASOUND [...] cervix. The endometrium measures 2.2 mm in thickness, and is hyperechoic. There [...] is normal arterial and normal venous vascularity. The left ovary is visualized. The left [...] was 577 ml. Polycystic ovary disease: No. US/Pelvic (Non ) IMPRESSION: Normal female pelvis. Electronically Signed: Vikram Toussaint MD at 14:04 EST Tel [phone], Service support , CC: Lamar Luo MD Java Tech: Signed DUPLEX ARTERIAL FLOW Observed: 06/29/2018 Status: F Source: [facility] 8:26 AM [facility] REPOSITORY [facility] Imaging Services [address] [place] [address] Duplex Arterial Flow Limited MR#: [id number] Acct: [id number] Name: TEZ MATA Rep #: [id number] : 1990 F 28 From: Vikram Toussaint MD PCP: Lamar Luo MD Status: REG CLI Study: Duplex Arterial Flow Limited Date of Exam: 06/29/18 Exam# [id number] Ordering Dr: Lamar Luo MD STUDY: ULTRASOUND [...] cervix. The endometrium measures 2.2 mm in thickness, and is hyperechoic. There [...] is normal arterial and normal venous vascularity. The left ovary is visualized. The left [...] was 577 ml. Polycystic ovary disease: No. US/Duplex Arterial Flow Limited IMPRESSION: Normal female pelvis. Electronically Signed: Vikram Toussaint MD at 14:04 EST Tel [phone], Service support , CC: Lamar Luo MD Java Tech: Signed ALLERGIES ALLERGIES No Allergies Records FoundENCOUNTERS ENCOUNTERS ADMIT/DISCHARGE ACCOUNT ADMITTING ENCOUNTER LOCATION SOURCE NUMBER CLASS 07/21/2018 [id number] Ambulatory Building:[facility] [place] Practices Repository 06/29/2018 [id number] Ambulatory [place] Adriana 0 [facility] ing:OPUS Repository FUNCTIONAL STATUS FUNCTIONAL STATUS No Functional Status Records FoundEQUIPMENT EQUIPMENT No Equipment Records FoundPAYERS PAYERS ENCOUNTER GUARANTOR PAYER SUBSCRIBER SOURCE 07/21/2018 TEZ Carr [facility] TEZ Carr [place] Practices ROTUNODOB: Insurance:Rena Lara ROTUNODOB: Repository [id number] [facility] [id number] [place] Number: [place] [facility] [id number] [place], [place] Date:6456-86-50[place], [place] [address]Jyk: 330) Name:FPO Ishmael [id number]: (HP)Tel: [id number], [place] [phone] (YU) [address]YH: [phone] ([phone] 07/21/2018 Secondary Cely E [facility]IP Practices Insurance:Weston RotunoDOB: Repository /BSPolicy Number: [id number] [facility] e Date:2008-01-17 [place], [place] [address]Ctl: [id number] Name:[id number], [place] [id number]: 07/21/2018 Tertiary TEZ Carr [facility] Practices Insurance:Weston ROTUNODOB: Repository /BSPolicy Number: [id number] [facility] e Date:2016-07-19 - [facility] [id number], [place] Name:[address] [address]Elr: 330 [id number], [place] [phone] (DV) [id number]: 06/29/2018 TEZ Carr Primary TEZ Wright [id number] Insurance:UNITED ROTUNODOB: [facility] [id number] [place], [place] [address]Whokxn Number: Repository [id number]: 330 [id number] [phone] (HP) Date:0473-61-11[address]VDPYN [place] [address]TO: 06/29/2018 Secondary NOT GIVENUNK [place] Insurance:SELF PAY [facility] Number: Effective Repository Date:2018-06-24 SOCIAL HISTORY SOCIAL HISTORY No Social History Records FoundFAMILY HISTORY FAMILY HISTORY No Family History Records FoundADVANCE DIRECTIVES ADVANCE DIRECTIVES No Advanced Directives Records FoundINFORMATION SOURCE INFORMATION SOURCE DATE CREATED AUTHOR AUTHOR'S ORGANIZATION 08/10/2018 OHIP
--- OUTSIDE RECORDS SUMMARY | 2018-08-15 03:32 | XMS RPT_ITS | Continuity of Care Document ---
:1990 Author Organization [facility] Address [address] [facility] [address] [place] [address] Phone Care Team Providers Name Role Phone Lamar Luo MD Unavailable Kaylynn Galdamez Unavailable Unavailable BULL Reyes Unavailable Unavailable Unavailable Unavailable Problems Name Dates Details Abnormal TSH (R79.89, 790.6) Status: Active Acne (L70.9, 706.1) Status: Active Acute pharyngitis (J02.9, 462) Comments: Around Aug 15 [facility] was told she had strep 2 rounds of antibiotics amoxicillin and z pack No improvement Status: Active Acute sinusitis, unspecified (J01.90, 461.9) Status: Active Allergic rhinitis (J30.9, 477.9) Comments: stable Status: Active Asthma (J45.909, 493.90) Comments: no signs and symptoms now Status: Active Attention-deficit hyperactivity disorder, unspecified type (F90.9, 314.01) Status: Active control (Z30.9, V25.9) Status: Active BMI 28.0-28.9,adult (Z68.28, V85.24) Status: Active Bronchitis (J40, 490) Status: Active Deliveries (Parity) Comments: 0 Status: Active Depressive disorder (F32.9, 311) Comments: doing well not need other meds Status: Active Dysmenorrhea (N94.6, 625.3) Comments: 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 Status: Active Encounter for general adult medical [...] mononucleosis (B27.90, 075) Comments: was told pos [facility] at [facility] on 09-21-10, from blood test, went to [place] for spring break, became acutely ill worsening Status: Active Lymphadenopathy [...] (N89.8, 623.5) Status: Active WWV V73.21 Comments: 2007 good pap [facility] [place] Status: Active Medications Name Dates Details Kariva 0.15-0.02/0.01 MG (06/12) Oral Tablet 1 [...] days Quantity: 14 {Tablet_ER_12HR} Refills: 0 Ordered:23-Jul-2010 Diliadesmarc BAUMAlyx Start : 23-Jul-2010 End : 28-Jul-2010 Inactive [...] Quantity: 3 {Tablet} Refills: 3 Ordered:12-Dec-2008 BULL Reeys Start : 08-Apr-2007 End : 12-Dec-2008 Inactive [...] Occasionally for 0 days Refills: 0 Ordered:08-Mar-2007 Reena Ba End : 08-Mar-2007 Discontinued Tzi-Yn-Phqhxhmy 0.18/0.215/0.25 MG-25 MCG Oral Tablet 1 (one) [...] use condoms Status: Inactive as of 27-Dec-2008 Immunization Name Dates Details HPV, quadrivalent on: [...] Active Living Situation Comments: single, 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 [facility] Status: Active No Drug Use Status: Active [...] kg/m2 Body Surface Area Calculated 1.89 m2 :08 Temperature 97.2 f Comments: Method: Tympanic Pulse [...] kg/m2 Body Surface Area Calculated 1.94 m2 :18 Pulse 87 /min Comments: Pattern: Regular Respiration [...] kg/m2 Body Surface Area Calculated 1.79 m2 14-Oly-171421:59 Temperature 98.6 f Comments: Method: Oral Pulse [...] kg/m2 Body Surface Area Calculated 1.8 m2 72-Auf-728105:02 Temperature 98 f Comments: Method: Oral Pulse [...] Height 66 in Head Circumference 0.00 cm :49 Temperature 98.8 f Comments: Method: Oral Pulse [...] 0.00 cm Results Date Description Value Details :36 LIPID PANEL (81002) Comments: PATIENT WAS FASTINGPERFORMED BY: [email or web address] [email or web address] [facility] [id number] LDL/HDL Ratio 1.9 {ratio_units} (Normal) Range: 0.0-3.2 [...] 220 mg/dL (Abnormal) Range: 100-199 :51 Ferritin (95748) Comments: PATIENT WAS FASTINGPERFORMED BY: SureWaves6370 [facility] [id number] Ferritin, Serum 106 ng/mL (Normal) Range: 15-150 :51 Anti-TPO Antibody (51496) Comments: PATIENT WAS FASTINGPERFORMED BY: [email or web address] [facility] [id number] Thyroid Peroxidase (TPO) Ab 17 {IU/mL} (Normal) Range: 0-34 :51 T4, FREE (THYROXINE) (74645) Comments: PATIENT WAS FASTINGPERFORMED BY: [email or web address] [facility] [id number] T4,Free(Direct) 1.20 ng/dL (Normal) Range: 0.82-1.77 :51 T3, FREE (TRIDOTHYRONINE) (50464) Comments: PATIENT WAS FASTINGPERFORMED BY: [email or web address] [email or web address] [facility] [id number] Triiodothyronine,Free,Serum 2.9 pg/mL (Normal) Range: 2.0-4.4 :51 CALCIFIDIOL (28277) VIT D 25 Comments: PATIENT WAS FASTINGPERFORMED BY: [employer] Dckkte3333 [facility]bl[facility] [place] [id number] Vitamin D, 25-Hydroxy 29.9 ng/mL (Abnormal) Range: 30.0-100.0 Comments: Vitamin D deficiency has been defined by the [facility] and an Endocrine Society practice guideline as alevel of serum 25-OH vitamin D less than 20 ng/mL (1,2).The Endocrine Society went on to further define vitamin Dinsufficiency as a level between 21 and 29 ng/mL (2).1. IOM ([place] of Medicine). 2010. Dietary reference intakes for calcium and D. Link [place]: The National AcademSensika Technologies Press.2. Ananth MF, Nirmal JACK, Winter DELGADO, et al. Evaluation, treatment, and prevention of vitamin D deficiency: an Endocrine Society clinical practice guideline. JCEM. 2010; 96(7):1911-30. :51 Folate (05689) Comments: PATIENT WAS FASTINGPERFORMED BY: [facility] Kshpvf8575 [facility] [place] [id number] Folate (Folic Acid), Serum 12.9 ng/mL (Normal) Comments: A serum folate concentration of less than 3.1 ng/mL isconsidered to represent clinical deficiency. :51 VITAMIN B-12 (CYANOCOBALAMIN) Comments: PATIENT WAS FASTINGPERFORMED BY: [facility] Zeglnl3637 [facility] [place] [id number] (54362) Vitamin B12 271 pg/mL (Normal) Range: 211-946 Comments: Effective June 21, 2017 the reference interval for Vitamin B12 will be changing to: 232-1245 pg/mL. :51 TSH (60860) Comments: PATIENT WAS FASTINGPERFORMED BY: [facility] Bzewap0989 [facility] [place] [id number] TSH 3.270 {uIU/mL} (Normal) Range: 0.450-4.500 :51 SED RATE ERYTHROCYTE (37016) Comments: PATIENT WAS FASTINGPERFORMED BY: SureWaves6370 [facility] [id number] Sedimentation Rate-Westergren 2 mm/h (Normal) Range: 0-32 :51 METABOLIC PANEL, COMPREHENSIVE Comments: PATIENT WAS FASTINGPERFORMED BY: SureWaves6370 [facility] [id number] (13740) ALT (SGPT) 34 [iU]/L (Abnormal) Range: 0-32 [...] Glucose, Serum 83 mg/dL (Normal) Range: 65-99 :51 CBC (AUTO) (30404) Comments: PATIENT WAS FASTINGPERFORMED BY: SureWaves6370 [facility] [id number] Platelets 309 {x10E3/uL} (Normal) Range: 150-379 RDW [...] 3.77-5.28 WBC 5.7 {x10E3/uL} (Normal) Range: 3.4-10.8 :19 SKIN TEST INTRADERMAL TB (58267) SKIN TEST INTRADERMAL TB negative (Normal) :41 [...] 4.2-5.4 WBC 4.7 K/mm3 (Normal) Range: 4.4-11.0 14-Ilh-781854:20 Rapid Strep Test, Office (15902) Rapid Strep Test, Office Negative (Normal) :42 CBC WITH MANUAL DIFF Comments: PATIENT NOT FASTINGPERFORMED BY: LabCoSt. Luke[facility] Warren HospitalBxkquq2023 Lyn[facility] [id number] Information: [id number] (00038) Hematology Comments: Note: (Normal) Comments: Manual differential [...] present WBC 13.2 {x10E3/uL} (Abnormal) Range: 4.0-10.5 :20 Influenza B Ag (08178) Influenza A Ag negative (Normal) 57-Sau-571553:20 Influenza A Ag (04087) Influenza A Ag negative (Normal) 2-Dde-747313:00 MIGUEL CULTURE-OTHER (80075) Comments: PATIENT NOT FASTINGPERFORMED BY: CONRADO [facility] Ddyacr9295 Lynnette [place] [id number] Information: SRC:AMAN [id number] Result 1 RRF (Normal) Comments: Routine respiratory deedee Upper Respiratory Culture Final report (Normal) 76-Xlt-80656:15 Pap Lb, rfx HPV Comments: Source.............Cervical;EndocervicalLMP / Prev Treat...NAV=[id number]. of containers..01 CYTYC Thin Prep VialPERFORMED BY: [facility] [address] [place] [id number] all pth . . (Normal) Note: PAPSMR [...] (endocervical component) are present.V72.31 ; Routine gynecolog ica exammaryana Rai Senior Java Software Engineer (ASCP) Plan of Care Name Dates Details [...] : URI Symptoms Indication: Bronchitis Planned Observations HPV, Reflex (04639)Indication: Encounter for screening for cervical cancer (Renamed from Encounter for screening for malignant neoplasm of cervix) On: 1-Sef-721870:18 Request Pap - GC Chlamydia (76218)Indication: Encounter for screening for cervical cancer (Renamed from Encounter for screening for malignant neoplasm of cervix) On: 24-Jun-20189:28 Request Thin Prep Pap (82512)Indication: Encounter for screening for cervical cancer (Renamed from Encounter for screening for malignant neoplasm of cervix) On: 24-Jun-20189:27 Request NuSwab Vaginitis Plus (STD W/O Herpes) (28355)Indication: Vaginal discharge On: 24-Jun-20189:26 Request CBC, PLATELETS & AUT DIFF (02449)Indication: Lymphadenopathy On: 62-Phv-182119:02 Request TSH (33990)Indication: Abnormal TSH On: 2-Vna-704005:36 Request Rapid Strep Test, Office (43710)Indication: Acute pharyngitis On: 4-Zgi-754057:27 Request Thin prep Pap (91369)Indication: Well female exam with routine gynecological exam On: 29-Yzl-38749:18 Request Planned Procedures Ultrasound - PelvisBy: Puja MINAYA, On: 24-Jun-2018 Intent Lamar Luo MD, Lamar Carr Eprescribed prescriptions ([id number])By: On: 09-Jun-2013 Intent Sydnee Camara DO THER/PROPH/DIAG INJ, SC/IM (52048)By: On: 08-Mar-2007 Reena Alfaro PAPILLOMA VACC 3 DOSE IM (16523)By: On: 08-Mar-2007 Intent Reena Ba Comments: Injecton of 0.5 cc given in right deltoid.lot#106ou exp.10/29/2009-aw THER/PROPH/DIAG INJ, SC/IM (75613)By: On: 14-Dec-2006 Alba Luo MD, Lamar Luo MD, Lamar Huber PAPILLOMA VACC 3 DOSE IM (10572)By: On: 14-Dec-2006 Alba Luo MD, Lamar Luo MD, Lamar Carr Instructions Name Dates Details Pelvic pain in [...] Bronchitis : Patient Instructions Indication: Bronchitis Encounters Lab Order On: 24-Jun-2018 10:17 Encounter Diagnosis: [...] and she was neg for strep and alyx sent us to er and they did [...] oral contraceptives. Menstruation: Last menstrual period date: (8-10-08 ). Encounter Diagnosis: Well Female (Younger Female) [...] End: 04-Jun-2006 15:34 [facility] Payers [facility] HospitalSANJEEV tran guarantor
== END ==
PROVIDERS: Family Provider Internal Medicine; PCP Internal Medicine; Visit Provider Internal Medicine
DX: R10.2 Pelvic and perineal pain (principal)
CPT/HCPCS: 76856; 93976